=== PATIENT | male | born 1990 | race American Indian/Alaskan Native ===

== ENCOUNTER 2017-03-13 01:03 | Emergency (ER) | payer MEDICAID ==
--- NOTE | 2017-03-13 01:45 | Emergency Department Report ---
ED General Adult HPI - General Stated complaint: MEDICAL CLEARANCE Time Seen by Provider: 03/13/17 01:36 - History of Present Illness Initial comments: This is a 26-year-old male who is brought into our facility by EMS after being dropped off at [facility] by his parents. My history comes completely from EMS. According to EMS the family noted the patient had been using drugs of some sort today and found him to be acting different at home. They brought him in to [facility] for care. [facility] apparently transferred him to our facility due to concerns for psychosis. An from medical clearance. They have medications listed in Zyprexa and Depakote and Cogentin. Patient is sleepy and somewhat somnolent here. He is very aloof. He is not contributory in any way with his evaluation. ED caveat is taken due to somnolence. - Related Data Home Medications Medication Instructions Recorded Confirmed Last Taken Benztropine [Cogentin] 0.5 mg PO BID 03/13/17 03/13/17 Unknown Divalproex ER [Depakote ER] 25 mg PO BID 03/13/17 03/13/17 Unknown Olanzapine [Zyprexa] 2.5 mg PO DAILY 03/13/17 03/13/17 Unknown Allergies Allergy/AdvReac Type Severity Reaction Status Date / Time No Known Allergies Allergy Verified 03/13/17 01:35 ED Review of Systems ROS: Stated complaint: MEDICAL CLEARANCE Other details as noted in HPI Comment: Unobtainable due to pts medical conditions Constitutional: denies: chills, fever Eyes: vision change ENT: ear pain, throat pain Respiratory: cough. denies: shortness of breath, wheezing Cardiovascular: chest pain ED Past Medical Hx - Medications Home Medications: Home Medications Medication Instructions Recorded Confirmed Last Taken Type Benztropine [Cogentin] 0.5 mg PO BID 03/13/17 03/13/17 Unknown History Divalproex ER [Depakote ER] 25 mg PO BID 03/13/17 03/13/17 Unknown History Olanzapine [Zyprexa] 2.5 mg PO DAILY 03/13/17 03/13/17 Unknown History ED Physical Exam - General Limitations: Altered Mental Status General appearance: other (sleepy and purposefully belligerent. Pulls sheet Over his over his head and does not want to discuss what is going on.) - Head Head exam: Present: atraumatic, normocephalic - Eye Eye exam: Present: normal appearance, EOMI. Absent: scleral icterus - ENT ENT exam: Present: normal exam, mucous membranes moist - Neck Neck exam: Present: normal inspection, full ROM. Absent: lymphadenopathy - Respiratory Respiratory exam: Present: normal lung sounds bilaterally. Absent: wheezes, rales - Cardiovascular Cardiovascular Exam: Present: regular rate, normal rhythm. Absent: systolic murmur, diastolic murmur - GI/Abdominal GI/Abdominal exam: Present: soft. Absent: tenderness, guarding - Extremities Exam Extremities exam: Absent: tenderness, pedal edema, calf tenderness - Back Exam Back exam: Absent: CVA tenderness (R), CVA tenderness (L), paraspinal tenderness - Neurological Exam Neurological exam: Present: other (sleepy. Moving all extremities. Easily arousable. Not contributory to questioning when awoken however.) - Psychiatric Psychiatric exam: Present: other (unable to assess at this time.) ED Course Vital Signs 03/13/17 01:35 Temperature 98.9 F Pulse Rate 98 H Respiratory 20 Rate Blood Pressure 132/82 [Left] O2 Sat by Pulse 98 Oximetry - Reevaluation(s) Reevaluation #1: 03/13/17 04:35 Patient is essentially sleeping at this time. I will try to reassess for couple of hours. I have not given him anything for sedation. It is fairly late though it could be contributed to the hour as well as if he is coming off of any type of drugs he may have been using yesterday. He does not fit any Specific toxidrome. Not on a 1013 at this point. I do not have any evidence of anything he has said or that was reported to [facility] regarding suicidal or homicidal ideations. Reevaluation #2: 03/13/17 06:05 I did attempt to interview this individual again. He is still not interested in talking to me at this point I did discuss the case with Dr. Magallon. He will follow-up when the patient is more appropriate and willing to talk. For now he continues to be hemodynamically stable. He has strong screen is noted and positive for marijuana and cocaine. He is not on 1013. I have not heard any information from EMS to consider him at all or homicidal risk at this time. Disposition pending per patient's response and per Dr. Magallon's discretion. ED Medical Decision Making - Lab Data Result diagrams: 03/13/17 01:56 03/13/17 01:56 Critical care attestation.: If time is entered above; I have spent that time in minutes in the direct care of this critically ill patient, excluding procedure time. ED Disposition Clinical Impression: Drug intoxication Qualifiers: Complication of substance-induced condition: uncomplicated Qualified Code(s): F19.920 - Other psychoactive substance use, unspecified with intoxication, uncomplicated Disposition: DC/TX PSY HOSP/PSY UNIT Is pt being admited?: No Does the pt Need Aspirin: No Condition: Stable Referrals: PRIMARY CARE, [Primary Care Provider] - 3-5 Days
[2017-03-13 02:08] LABS: Basophils % (Auto) 0.8 % (0.0-1.8); Eosinophils % (Auto) 0.9 % (0.0-4.3); Hematocrit 39.2 % (35.5-45.6); Hemoglobin 13.1 gm/dl (11.8-15.2); Mean Corpuscular HGB Conc 33 % (32-34); Mean Corpuscular Hemoglobin 29 pg (28-32); Mean Corpuscular Volume 87 fl (84-94); Platelet Count 313 K/mm3 (140-440); Red Blood Count 4.52 M/mm3 (3.65-5.03); Red Cell Distribution Width 13.8 % (13.2-15.2); White Blood Count 6.2 K/mm3 (4.5-11.0)
[2017-03-13 02:41] LABS: Anion Gap 15 mmol/L; BUN/Creatinine Ratio 18.75; Blood Urea Nitrogen 15 mg/dL (9-20); Calcium 8.9 mg/dL (8.4-10.2); Carbon Dioxide 27 mmol/L (22-30); Chloride 100.9 mmol/L (98-107); Glucose 117 mg/dL (75-100); Potassium 3.9 mmol/L (3.6-5.0); Sodium 139 mmol/L (137-145)
[2017-03-13 02:43] LABS: Urine Drugs of Abuse Note Disclamer
[2017-03-13 02:54] LABS: Bilirubin,Urine NEG (Negative); Blood,Urine SM (Negative); Ketones,Urine TR mg/dL (Negative); Leukocyte Esterase,Urine NEG (Negative); Mucus,Urine FEW /HPF; Nitrite,Urine NEG (Negative); Sperm,Urine 3+ /HPF (NP); Urobilinogen,Urine < 2.0 mg/dL (<2.0)
--- NOTE | 2017-03-13 09:08 | Emergency Department Report ---
Blank Doc - Documentation Documentation: Patient reassessed and is more awake at this time. He continues to deny suicidal or homicidal ideations. Mental health has evaluated the patient. Patient is medically clear to be transported back to [place] for treatment. Patient is awaiting transport.
[2017-03-13 09:45] VITALS: BP 118/68
== END 2017-03-13 11:16 ==
LOC: ED 01:03 → EEVIPCON 01:03 → ED 11:16
DX: F19.920 Other psychoactive substance use, unspecified with intoxication, uncomplicated (principal)
CPT/HCPCS: 36415; 80048; 80164; 80307; 81001; 85025; 99285; G0480; 80320